=== PATIENT | male | born 1970 | race Two or more races ===

== ENCOUNTER 2021-09-30 12:19 | Emergency (ER) | payer MEDICAID ==
[~2021-09-30] VITALS: Ht 172.7 cm; Wt 80.0 kg
[2021-09-30 12:23] VITALS: BP 112/82
[2021-09-30] MEDS ORDERED: orphenadrine citrate 60mg/2ml inj. IM ONE (14:10)
[2021-09-30] MEDS ORDERED: ketorolac trometh. 30mg/ml inj. IM ONE (14:10)
[2021-09-30] MEDS ORDERED: ketorolac tromethamine 15mg/ml inj. IM ONE (14:10)
[2021-09-30] MEDS ORDERED: METH4TAB3 PO (14:15)
[2021-09-30] MEDS ORDERED: ORPH100T2 PO (14:15)
== END 2021-09-30 14:54 | disposition home or self-care (01) ==
LOC: ER 12:20
DX: G89.29 Other chronic pain (principal); M54.9 Dorsalgia, unspecified
CPT/HCPCS: 96372; 99284; J1885; J2360